=== PATIENT | male | born 1950 | race Caucasian/White ===

== ENCOUNTER 2023-06-18 11:04 | Inpatient (IN) | payer OTHER ==
[2023-06-18] VITALS (7 sets, daily range): BP systolic 121–152; BP diastolic 60–78; PULSE 46–51; RESP 16–19; TEMP 97.6–98.1; O2SAT 96–99
[~2023-06-18] VITALS: Ht 182.9 cm; Wt 86.5 kg
[2023-06-18] MEDS ORDERED: MORPHINE SULFATE INJ 2 MG/ml SYRG IV PRN ×2 (13:30)
[2023-06-18] MEDS ORDERED: ACETAMINOPHEN 325 MG TAB PO PRN (13:30)
[2023-06-18] MEDS ORDERED: DOCUSATE SOD 100 MG CAP PO PRN (13:30)
[2023-06-18] MEDS ORDERED: ONDANSETRON HCL 4 MG/2 ML VIAL IV PRN (13:30)
[2023-06-18] MEDS ORDERED: NITROGLYCERIN 0.4 MG SL TAB SL PRN (13:30)
[2023-06-18] MEDS ORDERED: ALBU108A5 PO (15:23)
[2023-06-18] MEDS ORDERED: MET25T PO (15:23)
[2023-06-18] MEDS ORDERED: FLUT1AER6 PO (15:23)
[2023-06-18] MEDS ORDERED: SIMV40TA18 PO (15:23)
[2023-06-18] MEDS ORDERED: DONE5TAB80 PO (15:23)
[2023-06-18] MEDS ORDERED: GALA8TAB PO (15:23)
[2023-06-18] MEDS ORDERED: AMIO200T13 PO (15:23)
[2023-06-18] MEDS ORDERED: MEMA1TAB3 PO (15:23)
[2023-06-18] MEDS ORDERED: APIX5TAB PO (15:25)
[2023-06-18] MEDS: SODIUM CHLORIDE 0.9% 1,000 ML IV SCH ×2 (16:45→17:00)
[2023-06-18] MEDS: ALPRAZolam 0.5 MG TAB PO ONE (17:24)
[2023-06-18 18:34] LABS: Basophils # (auto) 0.1 10 ^3/uL (0-0.2); Basophils % (auto) 1.5 % (0.0-2.0); Eosinophils # (auto) 0.1 10 ^3/uL (0-0.8); Eosinophils % (auto) 1.7 % (0.0-7.0); Hematocrit 41.5 % (41.0-53.0); Lymphocytes # (auto) 0.9 10 ^3/uL (0.4-5.4); Lymphocytes % (auto) 20.3 % (10.0-50.0); Mean Corpuscular Hemoglobin 31.9 pg (28.0-32.0); Mean Corpuscular Hgb Conc. 33.8 g/dL (32.0-36.0); Mean Corpuscular Volume 94.4 fL (80.0-100.0); Monocytes # (auto) 0.4 10 ^3/uL (0-1.3); Monocytes % (auto) 9.3 % (0.0-12.0); Neutrophils # (auto) 3.1 10 ^3/uL (1.6-8.6); Neutrophils % (auto) 67.2 % (37.0-80.0); Nucleated Red Blood Cells % 0.1 %; Red Cell Distribution Width 13.1 % (11.8-14.3); White Blood Cell 4.6 10^3/uL (4.4-10.8)
[2023-06-18 18:49] LABS: INR 1.14 (0.9-1.15); Partial Thromboplastin Time 30.5 SEC (24.5-34.5); Prothrombin Time 11.9 sec (9.3-11.8)
[2023-06-18 18:56] LABS: Alanine Aminotransferase 46 U/L (7-40); Albumin 4.1 g/dL (3.2-4.8); Alkaline Phosphatase 64 U/L (46-116); Anion Gap 6 (5-15); Aspartate Aminotransferase 45 U/L (13-40); Bilirubin, Total 1.2 mg/dL (0.2-1.0); Calcium 8.6 mg/dL (8.7-10.4); Carbon Dioxide 26 mmol/L (20-30); Chloride 106 mmol/L (98-107); Glucose 81 mg/dL (74-106); Potassium 4.2 mmol/L (3.5-5.1); Sodium 138 mmol/L (136-145); Total Protein 6.8 g/dL (5.7-8.2)
[2023-06-18 19:26] LABS: BUN/Creatinine Ratio 12.9 (10.0-20.0); Blood Urea Nitrogen 13 mg/dL (9-23)
[2023-06-19] VITALS (10 sets, daily range): BP systolic 118–169; BP diastolic 71–100; PULSE 50–71; RESP 12–20; TEMP 97.4–98.1; O2SAT 93–97
[2023-06-19 05:41] LABS: Basophils # (auto) 0 10 ^3/uL (0-0.2); Eosinophils # (auto) 0.1 10 ^3/uL (0-0.8); Eosinophils % (auto) 2.9 % (0.0-7.0); Hematocrit 38.2 % (41.0-53.0); Hemoglobin 12.8 g/dL (13.5-17.5); Mean Corpuscular Hemoglobin 31.9 pg (28.0-32.0); Mean Corpuscular Hgb Conc. 33.5 g/dL (32.0-36.0); Mean Corpuscular Volume 95.4 fL (80.0-100.0); Monocytes # (auto) 0.5 10 ^3/uL (0-1.3); Monocytes % (auto) 11.7 % (0.0-12.0); Neutrophils # (auto) 2.5 10 ^3/uL (1.6-8.6); Neutrophils % (auto) 59.4 % (37.0-80.0); Red Blood Cells 4.01 10^6/uL (4.5-5.90); Red Cell Distribution Width 13.4 % (11.8-14.3); White Blood Cell 4.2 10^3/uL (4.4-10.8)
[2023-06-19 06:08] LABS: Alanine Aminotransferase 44 U/L (7-40); Albumin 3.8 g/dL (3.2-4.8); Alkaline Phosphatase 59 U/L (46-116); Anion Gap 7 (5-15); Aspartate Aminotransferase 43 U/L (13-40); BUN/Creatinine Ratio 11.7 (10.0-20.0); Blood Urea Nitrogen 13 mg/dL (9-23); Calcium 8.9 mg/dL (8.5-10.1); Carbon Dioxide 26 mmol/L (20-30); Chloride 107 mmol/L (98-107); Glucose 78 mg/dL (74-106); Potassium 3.9 mmol/L (3.5-5.1); Sodium 140 mmol/L (136-145); Total Protein 5.9 g/dL (5.7-8.2)
[2023-06-19] MEDS: APIXABAN 5 MG TAB PO SCH (10:00)
[2023-06-19] MEDS: VANCOMYCIN 1GM/200ML 200 ML IV ONE (13:15)
[2023-06-19] MEDS ORDERED: VANCOMYCIN 1GM/200ML 200 ML IV ONE (13:15)
[2023-06-19] MEDS ORDERED: LIDOCAINE 2%HCL (LOCAL ANESTH.) INJ 20ML MDV ONE (16:38)
[2023-06-19] MEDS ORDERED: VANCOMYCIN HCL 1000 MG VL ONE (16:48)
[2023-06-19] MEDS ORDERED: fentaNYL CITRATE 100 MCG/2 ML VL ONE (16:48)
[2023-06-19] MEDS ORDERED: MIDAZOLAM HCL 2MG/2ML 2ml VIAL (1mg/ml) ONE (16:49)
[2023-06-19] MEDS: HYDROcodone-ACET 5/325MG TAB PO PRN (21:11)
[2023-06-20 05:13] VITALS: BP 120/80; PULSE 60; RESP 16; TEMP 97.7; O2SAT 96
[2023-06-20 08:00] VITALS: PULSE 60; RESP 17; O2SAT 92
[2023-06-20 09:00] VITALS: BP 136/83; PULSE 57; RESP 17; TEMP 97.5; O2SAT 92
[2023-06-20 13:00] VITALS: BP 135/85; PULSE 60; RESP 17; TEMP 97.3; O2SAT 94
[2023-06-20] MEDS ORDERED: HYDR-4902 PO (14:14)
[2023-06-20] MEDS ORDERED: DOXY-448 PO (14:14)
[2023-06-20] MEDS ORDERED: NALO4SPR2 (14:16)
[2023-06-20 15:35] VITALS: BP 126/71; PULSE 60; RESP 17; TEMP 98.4; O2SAT 95
== END 2023-06-20 16:05 | disposition home or self-care (01) | DRG 243 ==
LOC: TELE-EAST 14:10
PROVIDERS: ADMIT Internal Medicine; ATTEND Internal Medicine
PROC: 0JH606Z Insertion of Pacemaker, Dual Chamber into Chest Subcutaneous Tissue and Fascia, Open Approach (ICD-10-PCS; principal; 2023-06-19)
PROC: 02H63JZ Insertion of Pacemaker Lead into Right Atrium, Percutaneous Approach (ICD-10-PCS; 2023-06-19)
PROC: 02HK3JZ Insertion of Pacemaker Lead into Right Ventricle, Percutaneous Approach (ICD-10-PCS; 2023-06-19)
DX: I49.5 Sick sinus syndrome (principal); I45.89 Other specified conduction disorders; I48.20 Chronic atrial fibrillation, unspecified; I44.39 Other atrioventricular block; I10 Essential (primary) hypertension; E78.5 Hyperlipidemia, unspecified; Z82.49 Family history of ischemic heart disease and other diseases of the circulatory system
CPT/HCPCS: 33208; 36415; 71045; 80053; 85025; 85610; 85730; 86850; 86870; 86900; 86901; 87081; 93005; 93306; 99152; G0378; J2250